=== PATIENT | female | born 1940 | race Native Hawaiian/Other Pacific Islander ===

== ENCOUNTER 2017-03-30 14:00 | Outpatient (CLI) | payer OTHER ==
[2017-03-30 14:17] LABS: PLATELET COUNT 192 K/uL (152-353)
[2017-03-30 14:37] LABS: POTASSIUM 4.9 mmol/L (3.6-5.2); SODIUM 141 mmol/L (136-145)
== END 2017-03-30 15:00 | disposition home or self-care (01) ==
LOC: LAB 14:00
PROVIDERS: Nurse Practitioner Family
DX: Z00.00 Encounter for general adult medical examination without abnormal findings (principal); I10 Essential (primary) hypertension; R53.83 Other fatigue; R53.81 Other malaise; E55.9 Vitamin D deficiency, unspecified; R79.89 Other specified abnormal findings of blood chemistry
CPT/HCPCS: 80053; 80061; 82306; 82607; 83036; 84436; 84443; 85027

== ENCOUNTER 2017-10-01 12:45 | Outpatient (CLI) | payer OTHER ==
[2017-10-01 13:13] LABS: PLATELET COUNT 214 K/uL (152-353)
[2017-10-01 13:35] LABS: POTASSIUM 4.5 mmol/L (3.6-5.2)
== END 2017-10-01 13:45 | disposition home or self-care (01) ==
LOC: LAB 12:45
PROVIDERS: Nurse Practitioner Family
DX: I10 Essential (primary) hypertension (principal); R53.83 Other fatigue; R53.81 Other malaise; Z79.899 Other long term (current) drug therapy; Z51.81 Encounter for therapeutic drug level monitoring
CPT/HCPCS: 80053; 80061; 82306; 82607; 83036; 84436; 84443; 85027

== ENCOUNTER 2018-09-07 13:25 | Outpatient (CLI) | payer OTHER, MEDICARE | END 2018-09-07 21:12 | disposition home or self-care (01) | LOC: US 13:25 | DX: R42 Dizziness and giddiness (principal); R26.89 Other abnormalities of gait and mobility ==

== ENCOUNTER 2018-09-20 08:41 | Outpatient (CLI) | payer OTHER, MEDICARE | END 2018-09-20 20:48 | disposition home or self-care (01) | LOC: US 08:41 | DX: E04.1 Nontoxic single thyroid nodule (principal) ==

== ENCOUNTER 2019-02-10 11:34 | Outpatient (CLI) | payer OTHER, MEDICARE | END 2019-02-10 20:11 | disposition home or self-care (01) | LOC: LABW 11:34 | DX: E07.9 Disorder of thyroid, unspecified (principal) | CPT/HCPCS: 36415; 84439; 84443 ==

== ENCOUNTER 2019-04-20 11:22 | Outpatient (CLI) | payer OTHER, MEDICARE | END 2019-04-20 21:36 | disposition home or self-care (01) | LOC: RAD 11:22 | DX: M79.662 Pain in left lower leg (principal); S89.82XA Other specified injuries of left lower leg, initial encounter ==

== ENCOUNTER 2019-07-05 10:07 | Outpatient (CLI) | payer OTHER, MEDICARE ==
[2019-07-05 10:22] LABS: PLATELET COUNT 219 K/uL (152-353)
[2019-07-05 10:46] LABS: POTASSIUM 4.1 mmol/L (3.6-5.2)
== END 2019-07-05 22:29 | disposition home or self-care (01) ==
LOC: LABW 10:07
PROVIDERS: Family Medicine
DX: I10 Essential (primary) hypertension (principal); E78.2 Mixed hyperlipidemia; E03.8 Other specified hypothyroidism; E53.8 Deficiency of other specified B group vitamins; E55.9 Vitamin D deficiency, unspecified
CPT/HCPCS: 36415; 80053; 80061; 82306; 82607; 84439; 84443; 85027

== ENCOUNTER 2019-07-31 17:09 | Observation (INO) | payer OTHER, MEDICARE ==
[~2019-07-31] VITALS: Ht 167.6 cm; Wt 100.0 kg
[2019-07-31 17:45] VITALS: BP 185/89; TEMP 97.2
[2019-07-31 20:04] LABS: PLATELET COUNT 170 K/uL (152-353)
[2019-07-31 20:08] VITALS: BP 145/88; TEMP 97.2
[2019-07-31 20:13] LABS: POTASSIUM 5.4 mmol/L (3.6-5.2)
[2019-07-31 20:22] LABS: PARTIAL THROMBOPLASTIN TIME 24.7 SECONDS (24.5-33.6)
[2019-08-01] VITALS (7 sets, daily range): BP systolic 126–157; BP diastolic 63–83; TEMP 97.7–98.2
[2019-08-01] MEDS ORDERED: LEVO0.0723 PO (11:37)
[2019-08-01] MEDS ORDERED: MOBIC15 MG PO (11:41)
[2019-08-01] MEDS ORDERED: HYDROCHLOROT12.5 M1 PO ×2 (11:42→11:45)
[2019-08-01] MEDS ORDERED: AVAPRO300 MG PO (11:47)
[2019-08-02] VITALS: BP 149/69; TEMP 97.7
[2019-08-02 04:00] VITALS: BP 155/77; TEMP 97.7
[2019-08-02 08:00] VITALS: BP 128/71; TEMP 97.5
[2019-08-02 10:55] LABS: PLATELET COUNT 129 K/uL (152-353)
[2019-08-02 11:19] LABS: POTASSIUM 4.1 mmol/L (3.6-5.2)
[2019-08-02 12:00] VITALS: BP 164/78; TEMP 98.7
== END 2019-08-02 14:30 | disposition home or self-care (01) ==
LOC: ED 17:09 → MED/SURG 21:00
PROVIDERS: Hospitalist; Internal Medicine; ADMIT Family Medicine
DX: B02.30 Zoster ocular disease, unspecified (principal); I10 Essential (primary) hypertension; M15.8 Other polyosteoarthritis; Z79.1 Long term (current) use of non-steroidal anti-inflammatories (NSAID); Z79.890 Hormone replacement therapy; Z79.899 Other long term (current) drug therapy; Z51.81 Encounter for therapeutic drug level monitoring
CPT/HCPCS: 36415; 80053; 85027; 85610; 85730; 87070; 87205; 96365; 96366; 96367; 96372; 96374; 96375; 99220; 99284; G0378; J0133; J0696; J1650; J1885; J2270; J2405

== ENCOUNTER 2019-09-22 09:10 | Outpatient (CLI) | payer OTHER, MEDICARE ==
[~2019-09-22 09:10] MED LIST: AVAPRO300 MG PO; HYDROCHLOROT12.5 M1 PO; LEVO0.0723 PO; MOBIC15 MG PO
== END 2019-09-22 19:39 | disposition home or self-care (01) ==
LOC: MRI 09:10
DX: M25.511 Pain in right shoulder (principal); M75.101 Unspecified rotator cuff tear or rupture of right shoulder, not specified as traumatic